=== PATIENT | female | born 1975 | race Caucasian/White ===

== ENCOUNTER 2017-09-12 03:11 | Emergency (ER) | payer OTHER, MEDICAID ==
--- NOTE | 2017-09-12 03:16 | ED Physician Documentation ---
PD HPI UPPER EXT INJURY - Stated complaint Stated Complaint: FIT FOR CUSTODY - Chief complaint Chief Complaint: Trauma Ext - History obtained from History obtained from: Patient, Police - History of Present Illness Location: Right, Hand Type of injury: Fall, Blunt / blow Where injury occurred: Street Timing - onset: Today Timing - details: Abrupt onset, Still present Worsened by: Moving, Palpating Associated symptoms: Swelling Similar symptoms before: Has not had sx before Recently seen: Not recently seen - Additonal information Additional information: Patient is a 41 year old female brought in by police for hand pain. Patient and officer got in a "tussle" and patient hit her hand on something. Patient currently has tenderness and swelling over the 4th and 5th metatarsals on her right hand. Review of Systems Ten Systems: 10 systems reviewed and negative PD PAST MEDICAL HISTORY - Allergies Allergies/Adverse Reactions: Allergies Allergy/AdvReac Type Severity Reaction Status Date / Time Sulfa (Sulfonamide Allergy Unknown Verified 09/12/17 03:21 Antibiotics) PD ED PE NORMAL - Vitals Vital signs reviewed: Yes - General General: Alert and oriented X 3 - Neck Neck: No bony TTP - Cardiac Cardiac: RRR - Respiratory Respiratory: No respiratory distress - Abdomen Abdomen: Non distended - Neuro Neuro: Alert and oriented X 3 Eye Opening: Spontaneous PD ED PE EXPANDED - Extremities Extremities: Right hand DAVE UE/Hands Visual: 1 - tenderness (tenderness, swelling and ecchymosis) Results - Vitals Vitals: Vital Signs - 24 hr 09/12/17 03:13 Temperature 36.8 C Heart Rate 103 H Respiratory 20 Rate Blood Pressure 137/111 H O2 Saturation 100 Oxygen O2 Source Room air - Rads (name of study) right hand Radiology: EMP read contemporaneously (4th metacarpal fx) PD MEDICAL DECISION MAKING - ED course Complexity details: reviewed old records, reviewed results, re-evaluated patient , considered differential, d/w patient ED course: Patient was seen and examined at bedside. Imaging was ordered. When patient returned the results were reviewed and consistent with 4th metacarpal fracture. Patient was placed in an ulnar gutter. Patient required no further inpatient work up and was fit for confinement. - Sepsis Event Vital Signs: Vital Signs - 24 hr 09/12/17 03:13 Temperature 36.8 C Heart Rate 103 H Respiratory 20 Rate Blood Pressure 137/111 H O2 Saturation 100 Oxygen O2 Source Room air Departure - Departure Disposition: 01 Home, Self Care Clinical Impression: Closed fracture of 4th metacarpal Condition: Good Instructions: ED Fx Hand Closed Follow-Up: Orlin Casanova MD [Provider Admit Priv/Credential] - Tomorrow Comments: Your symptoms today are being caused by a hand fracture. A temporary splint has been placed on your hand. you should ice your hand at least 4 times a day and keep it elevated. you can take tylenol 650mg as needed for pain. You should call the office of Dr. Casanova to schedule an outpatient follow up appointment for a definitive cast. You can return to the emergency department at any time for new, worsening or uncontrollable symptoms.
[2017-09-12 03:29] VITALS: BP 137/111
--- NOTE | 2017-09-12 03:50 | XRAY Report ---
Procedure Date: 09/12/2017 Accession Number: [id number] / [id number] Procedure: XR - Hand 3 View RT CPT Code: FULL RESULT: EXAM: RIGHT HAND RADIOGRAPHY EXAM DATE: 09/12/2017 03:31 AM. CLINICAL HISTORY: Pain over 4th and 5th metacarpals. COMPARISON: None. TECHNIQUE: 3 views. FINDINGS: Bones: Fracture extending from the proximal metaphysis of the fourth metacarpal to the distal diaphysis. There is about 2 mm separation of the fracture fragments. No other acute fracture identified. Joints: No dislocation seen. Joints appear intact. Soft Tissues: Soft tissue swelling. IMPRESSION: 1. Fracture of the fourth metacarpal extending from the proximal metaphysis of the distal diaphysis. There is about 2 mm separation of the fracture fragments. [facility]
[2017-09-12] MEDS ORDERED: ACETAMINOPHEN 325 MG TABLET PO STA (03:54)
[2017-09-12] MEDS ORDERED: TETANUS/DIPHTHERIA TOXOID 0.5 ML SYRINGE IM ONE (03:54)
== END 2017-09-12 04:01 | disposition home or self-care (01) ==
LOC: ED 03:11
DX: S62.304A Unspecified fracture of fourth metacarpal bone, right hand, initial encounter for closed fracture (principal); W19.XXXA Unspecified fall, initial encounter; W22.8XXA Striking against or struck by other objects, initial encounter; Y92.410 Unspecified street and highway as the place of occurrence of the external cause
CPT/HCPCS: 29125; 73130; 99283; A9270